=== PATIENT | male | born 1965 | race Caucasian/White ===

== ENCOUNTER 2023-04-10 13:13 | Outpatient (REF) | payer OTHER, SELFPAY | END 2023-04-10 13:14 | disposition home or self-care (01) | LOC: NPINS 13:13 | DX: M79.661 Pain in right lower leg (principal); S81.801S Unspecified open wound, right lower leg, sequela | CPT/HCPCS: 87070; 87075; 87186 ==

== ENCOUNTER 2023-12-13 14:47 | Outpatient (REF) | payer OTHER, SELFPAY ==
[2023-12-13 15:25] LABS: Appearance Urine Cloudy (Clear); Bilirubin Urine Negative (Negative); Blood Urine 3+ (Negative); Color Urine Yellow (Yellow); Glucose Urine Negative (Negative); Ketones Urine Negative (Negative); Leukocyte Esterase Urine 2+ (Negative); Nitrite Urine Negative (Negative); Protein Urine Negative (Negative); Specific Gravity Urine 1.015 (1.000-1.030); Urobilinogen Urine 0.2 (0.2-1.0)
[2023-12-13 16:42] LABS: Bacteria Urine Few; Squamous Epithelial Cell Urine Few (None-Few)
== END 2023-12-13 14:48 | disposition home or self-care (01) ==
LOC: NPINS 14:47
PROVIDERS: PCP Family Medicine; Visit Provider Family Medicine
DX: N39.0 Urinary tract infection, site not specified (principal)
CPT/HCPCS: 81001; 87077; 87086; 87186